=== PATIENT | female | born 1995 | race African-American/Black ===

== ENCOUNTER 2021-11-30 12:18 | Emergency (ER) | payer BC, SELFPAY ==
[2021-11-30 13:42] LABS: #Monocytes 0.4 10x3/uL (0.0-1.1); #Neutrophils 3.9 10x3/uL (1.5-8.4); %Basophils 0.5 % (0.0-2.0); %Eosinophils 0.6 % (0.0-6.0); %Lymphocytes 28.3 % (18.0-47.0); %Monocytes 6.8 % (0.0-10.0); %Neutrophils 63.5 % (40.0-75.0); Hemoglobin 12.2 g/dL (12.0-15.5); Mean Corpuscular HGB CONC 31.9 g/dL (32.0-36.0); Mean Corpuscular Hemoglobin 24.8 pg (27.0-33.0); Mean Corpuscular Volume 77.6 fl (81.6-98.3); Mean Platelet Volume 9.1 fl (7.4-10.4); Platelet Count 413 10x3/uL (150-450); RBC Distribution Width 13.6 % (11.5-14.5); Red Blood Cell (RBC) Count 4.92 10x6/uL (3.90-5.03); White Blood Cell (WBC) Count 6.2 10x3/uL (3.5-10.5)
[2021-11-30 13:55] LABS: ALT (SGPT) 6 U/L (8-55); AST (SGOT) 11 U/L (5-34); Alkaline Phosphatase 91 U/L (40-110); Anion Gap 15 mmol/L (10-20); BUN (Urea Nitrogen) 5 mg/dL (7.0-18.7); Bilirubin, Total 0.4 mg/dL (0.2-1.2); Calc. Creatinine Clearance 0 mL/min (70-130); Calcium 8.8 mg/dL (7.8-10.44); Carbon Dioxide 24 mmol/L (22-29); Chloride 105 mmol/L (98-107); Globulin 3.6 g/dL (2.4-3.5); Glucose 96 mg/dL (70-105); Potassium 3.7 mmol/L (3.5-5.1); Protein, Total 7.6 g/dL (6.0-8.3); Sodium 140 mmol/L (136-145)
== END 2021-11-30 14:28 | disposition home or self-care (01) ==
LOC: CSHERS 12:18
DX: J18.9 Pneumonia, unspecified organism (principal)
CPT/HCPCS: 36415; 71045; 80053; 84484; 85025; 93005